=== PATIENT | female | born 1990 | race Caucasian/White ===

== ENCOUNTER 2016-10-12 20:34 | Emergency (ER) | payer OTHER ==
[~2016-10-12 20:34] MED LIST: BACTROBAN22 GM TOP; BENTYL10 MG PO; BIRTH CONTROL PILL; BIRTH CONTROL PILL PO; IBUPROFEN600 MG PO; NAPROSYN500 MG PO; PHENERGAN PO; PHENERGAN25 MG PO; TRINESSA TABLE1 EACH PO; VALTREX PO; ZOFRAN ODT4 MG PO; ZOFRAN PO
[2016-10-12 20:35] LABS: URINE SOURCE CLEAN CATCH
[2016-10-12 20:38] LABS: URINE APPEARANCE CLEAR; URINE BILIRUBIN NEG (NEG); URINE BLOOD 2+ (NEG); URINE COLOR YELLOW; URINE GLUCOSE NEG (NORM); URINE KETONE NEG (NEG); URINE LEUKOCYTE ESTERASE 2+ (NEG); URINE NITRATE NEG (NEG); URINE PROTEIN NEG (NEG); URINE UROBILINOGEN 0.2 MG/DL (NORM)
[2016-10-12 20:40] LABS: MICRO INDICATED? YES
[2016-10-12 20:43] LABS: CULTURE INDICATED? YES; URINE BACTERIA NEG (NEG); URINE SQUAMOUS EPITHELIAL CELL MODERATE /[HPF]
[2016-10-16 11:39] LABS: CHLAMYDIA TRACH Detected (Not Detected); N GONOR Detected (Not Detected)
== END 2016-10-12 21:20 | disposition home or self-care (01) ==
LOC: SED 20:34
PROVIDERS: Emergency Medicine
DX: A54.03 Gonococcal cervicitis, unspecified (principal); F17.200 Nicotine dependence, unspecified, uncomplicated; Z88.6 Allergy status to analgesic agent
CPT/HCPCS: 81003; 84703; 87086; 87491; 87591; 87808; 87905; 96372; 99284; J0696

== ENCOUNTER 2016-11-28 17:43 | Emergency (ER) | payer OTHER ==
--- NOTE | ~2016-11-28 | EKG ---
PATIENT: CESAR ATKINS UNIT #: [id number] Ventricular Rate: 99 BPM Atrial Rate: 99 BPM P-R Interval: 124 ms QRS Duration: 84 ms Q-T Interval: 346 ms QTC Calculation(Bezet): 444 ms P [place]: 68 degrees Calculated R [place]: 80 degrees Calculated T [place]: 50 degrees Diagnosis Line: Sinus rhythm with marked sinus arrhythmia Diagnosis Line: Possible Left atrial enlargement Diagnosis Line: Nonspecific ST abnormality Diagnosis Line: Abnormal ECG Diagnosis Line: When compared with ECG of 25-MAR-2013 12:09, Diagnosis Line: T wave inversion no longer evident in Inferior Diagnosis Line: leads Diagnosis Line: Confirmed by SENG VASQUEZ MD ([id number]) on Diagnosis Line: 11/29/2016 7:31:01 AM INTERPRETING : MED
[2016-11-28 18:52] LABS: BASOPHIL% 0.6 % (0-2.5); EOSINOPHIL# 0.1 X10e3 (0-0.7); EOSINOPHIL% 0.6 % (0.0-7.0); HEMATOCRIT 43.9 % (35.0-45.0); HEMOGLOBIN 14.4 gm/dL (12.0-16.0); LYMPHOCYTE# 2.7 X10e3 (1.0-3.5); MEAN CORPUSCULAR HEMOGLOBIN 31.4 PG (28-34); MEAN CORPUSCULAR HGB CONC 32.7 g/dL (30-36); MEAN PLATELET VOLUME 8.8 FL (6.5-11.5); MONOCYTE# 0.3 X10e3 (0-1.0); MONOCYTE% 3.9 % (3.0-12.0); NEUTROPHIL# 5.8 X10e3 (1.5-7.1); NEUTROPHIL% 64.9 % (40-75); PLATELET COUNT 207 X10e3 (140-420); RED BLOOD COUNT 4.57 X10e (3.90-5.30); RED CELL DISTRIBUTION WIDTH 12.6 % (11.0-15.5); WHITE BLOOD COUNT 8.9 X10e3 (4.0-10.5)
[2016-11-28 18:54] LABS: DIFF IND NO
[2016-11-28 19:15] LABS: ALBUMIN SERUM 4.2 g/dL (3.5-5.0); BILIRUBIN, DIRECT 0.1 mg/dL (0.0-0.2); BILIRUBIN,INDIRECT 1.1 mg/dL (0.0-0.9); BILIRUBIN,TOTAL 1.2 mg/dL (0.2-2.0); BUN/CREATININE RATIO 14.28; CALCIUM SERUM 9.4 mg/dL (8.4-10.2); CREATININE SERUM 0.7 mg/dL (0.6-1.4); GLOM FILT RATE Estimated 117.9 mL/min (>60); POTASSIUM 3.7 mmol/L (3.5-5.1); PROTEIN TOTAL SERUM 7.8 g/dL (6.0-8.3)
[2016-11-28 19:53] LABS: POC - CKMB <1.0 ng/mL (0.0-7.9); POC - TROPONIN <0.05 ng/mL (<=0.05)
== END 2016-11-28 20:12 | disposition left against medical advice (07) ==
LOC: CED 17:43
DX: Z53.21 Procedure and treatment not carried out due to patient leaving prior to being seen by health care provider (principal)
CPT/HCPCS: 80048; 80076; 82553; 84484; 85025; 93005